=== PATIENT | female | born 1945 ===

== ENCOUNTER → 2017-02-06 | Outpatient (CLI) | payer MEDICARE, OTHER ==
[~2017-02-06] MED LIST: ADVAIR 100-501 EACH INH; ALDACTONE25 MG PO; ASPIRIN LO-DOSE81 MG PO; CALTRATE 600 +1 EAC1 PO; DILTIAZEM 24HR120 M1 PO; EVISTA60 MG PO; GLUCOSAMINE CH1 EAC3 PO; HYDRODIURIL25 MG PO; XANAX0.5 MG PO
[2017-02-06 09:28] LABS: ANION GAP 14.4 (10.0-19.0); CALCIUM 9.3 mg/dL (8.5-10.5); CREATININE 1.2 mg/dL (0.5-1.1); POTASSIUM 4.4 mMol/L (3.7-5.1)
== END | disposition disaster alternative care site (69) ==
LOC: LGSOS 09:08
PROVIDERS: Internal Medicine Interventional Cardiology
DX: I10 Essential (primary) hypertension (principal)

== ENCOUNTER → 2017-02-08 | Outpatient (CLI) | payer MEDICARE, OTHER | END | disposition disaster alternative care site (69) | LOC: LKCL 16:08 | DX: Z12.4 Encounter for screening for malignant neoplasm of cervix (principal); Z00.00 Encounter for general adult medical examination without abnormal findings; Z01.419 Encounter for gynecological examination (general) (routine) without abnormal findings | CPT/HCPCS: G0145 ==